=== PATIENT | female | born 1965 | race Two or more races ===

== ENCOUNTER 2017-09-02 05:07 | Inpatient (IN) | payer OTHER ==
[~2017-09-02] VITALS: Ht 160 cm; Wt 82.6 kg
[~2017-09-02 05:07] MED LIST: ACETAMINOPHEN 325 MG TABLET ONE; CEFAZOLIN SODIUM/DEXTROSE,ISO 50 ML IV ONE; CELECOXIB 100 MG CAPSULE ONE; oxyCODONE HCL SR 10MG TAB.SR.12H PO ONE
[2017-09-02] MEDS ORDERED: TRANEXAMIC ACID 3,000 MG in SODIUM CHLORIDE IRRIG SOLUTION 70 ML IR ONE (07:30)
[2017-09-02] MEDS ORDERED: BACITRACIN 50000 UNITS/VIAL ONE (09:15)
[2017-09-02] MEDS ORDERED: KETOROLAC TROMETHAMINE INJ 30 MG/ML VIAL ONE (09:15)
[2017-09-02] MEDS ORDERED: BUPIVACAINE 0.25% 75 MG/30 ML VIAL ONE (09:15)
[2017-09-02] MEDS ORDERED: MORPHINE SULFATE/PF 10 MG/10ML (1MG/ML) AMPUL ONE (09:31)
[2017-09-02] MEDS ORDERED: MIDAZOLAM HCL 2 MG/2ML VIAL ONE (09:31)
[2017-09-02] MEDS ORDERED: ONDANSETRON HCL/PF 4 MG/2 ML VIAL ONE (11:22)
[2017-09-02] MEDS ORDERED: METOCLOPRAMIDE HCL 10 MG/2 ML VIAL ONE (11:38)
[2017-09-02] MEDS ORDERED: DEXAMETHASONE SOD PHOSPHATE 4 MG/ML VIAL ONE (12:49)
[2017-09-02 13:50] VITALS: BP 109/53
[2017-09-02 14:00] VITALS: BP 109/53
--- NOTE | 2017-09-02 14:00 | NUR ---
PROCESS OWNERSUPERVISOR RICE MILLING 52 YEARS OLD FEMALE, PORTUGUESE SPEAKING ONLY. DAUGHTER AT THE BEDSIDE ASSIST ASSOCIATE PROFESSOR OF CHEMISTRY FOR THE PATIENT. PATIENT IS A/O X3, S/P RIGHT MEDIAL UNICOMPARTMENT ARTHROPLASTY TODAY BY DR. MOYER. RIGHT LOWER EXTREMITY DRESSING INTACT, ABLE TO MOVE LEFT FOOT AND TOES, DENIES PAIN. SCD IN PLACE. ZURITA INTACT, DRAINING TO GRAVITY, BAG OFF THE FLOOR. URINE CLEAR AND YELLOW. LEADS APPLIED FOR TELE MONITOR. WILL CONT TO MONITOR. DR. OSMAN FOR CONSULT PAIN MANAGEMENT.
[2017-09-02] MEDS ORDERED: BISACODYL SUPP (10 MG) 10 MG/SUPP.RECT SUPP.RECT RC PRN (14:30)
[2017-09-02] MEDS ORDERED: ZOLPIDEM TARTRATE 5 MG TABLET PO PRN (14:30)
[2017-09-02] MEDS ORDERED: MENTHOL/CETYLPYRD (CEPACOL) 1 LOZ LOZENGE MM PRN (14:30)
[2017-09-02] MEDS ORDERED: ACETAMINOPHEN 325 MG TABLET PO PRN (14:30)
[2017-09-02] MEDS ORDERED: DOCUSATE SODIUM 250 MG CAPSULE PO PRN (14:30)
[2017-09-02] MEDS ORDERED: SENNOSIDES 8.6 MG TABLET PO PRN (14:30)
[2017-09-02] MEDS ORDERED: CLONIDINE HCL 0.1 MG TABLET PO PRN ×2 (14:30→17:30)
[2017-09-02] MEDS ORDERED: diphenhydrAMINE HCL 25 MG CAPSULE PO PRN ×2 (14:30→17:30)
[2017-09-02] MEDS ORDERED: ONDANSETRON HCL/PF 4 MG/2 ML VIAL IVP PRN (14:30)
[2017-09-02] MEDS: IV D5/0.45 NACL 1,000 ML IV PRN ×2 (14:53→22:22)
[2017-09-02] MEDS ORDERED: NALOXONE HCL 0.4 MG/ML AMPUL IV PRN (15:00)
[2017-09-02] MEDS ORDERED: MORPHINE SULFATE INJ 4 MG/ML DISP.SYRIN IM PRN (15:00)
[2017-09-02] MEDS ORDERED: MAGNESIUM HYDROXIDE 30 ML UDC PO PRN (15:00)
[2017-09-02] MEDS ORDERED: MAG HYDROX/AL HYDROX/SIMETH 30 ML UDC PO PRN (15:00)
[2017-09-02 16:00] VITALS: BP_SYST 100; BP_SYST 109; BP_DIAS 53; BP_DIAS 54
[2017-09-02] MEDS: ANCEF 1 GM/50 ML D5W IV SCH ×2 (16:36)
[2017-09-02] MEDS: DOCUSATE SODIUM 100 MG CAPSULE PO SCH (16:36)
--- NOTE | 2017-09-02 18:16 | NUR ---
PRICING STRATEGIST CLOSING NOTES PATIENT IN BED, A/O X4. PT EVAL TODAY, RIGHT KNEE CPM MACHINE IN PLACE, TOLERATING WELL. SINUS RHYTHM HR 69 IN THE MONITOR. IVF D5 1/2 NS INFUSING AT 125ML/HR, SALINE LOCK WHEN TAKING PO PER MD. PATIENT HAS NO APPETITE TO EAT AT THIS TIME, OFFERED PO FLUIDS. DENIES PAIN, VS REMAINS STABLE, AFEBRILE. DR. OSMAN FOR PAIN MANAGEMENT CONSULT. WILL ENDORSE TO ONCOMING RN.
--- NOTE | 2017-09-02 19:20 | NUR ---
MS/RN OPENING NOTES PT RECEIVED RESTING IN BED, ON 2L O2 VIA NC, BREATHING EVEN AND UNLABORED. DENIES SOB. ON TELE OBSERVATION D/T SPINAL ANESTHESIA, SR WITH HR 61. IV TO RIGHT HAND PATENT AND INTACT RUNNING IVF ORDERED. DENIES PAIN AT THIS TIME. CPM MACHINE TO RIGHT LEG IN PLACE, DRESSING WITH CALVIN BANDAGE C/D/I. BED IN LOW/LOCKED POSITION WITH CALL LIGHT IN REACH. SIDE RAILS UPX2. WILL CONTINUE TO MONITOR
[2017-09-02 20:00] VITALS: BP 103/60
[2017-09-02] MEDS: PANTOPRAZOLE 40 MG TABLET.DR PO SCH (22:07)
--- NOTE | 2017-09-02 23:00 | NUR ---
MS/RN NOTES CPM MACHINE OFF. PT NO LONGER WANTS TO USE IT. CPM MACHINE REMOVED FROM BED. RIGHT LEG STABILIZED AND ELEVATED ON PILLOW. WILL CONTINUE TO MONITOR
[2017-09-03] VITALS (9 sets, daily range): BP systolic 120–161; BP diastolic 59–82
--- NOTE | 2017-09-03 01:30 | NUR ---
MS/RN NOTES PT WITH X1 EPISODE OF EMESIS. PRN ZOFRAN ADMINISTERED ORDERED. WILL MONITOR FOR EFFECTIVENESS.
[2017-09-03] MEDS: ANCEF 1 GM/50 ML D5W IV SCH ×2 (02:13)
[2017-09-03] MEDS: oxyCODONE IR immediate release 5 MG PO PRN ×2 (02:19→12:46)
--- NOTE | 2017-09-03 02:20 | NUR ---
MS/RN NOTES PT COMPLAINING OF ACHING/THROBBING PAIN TO RIGHT KNEE. PRN OXY IR ADMINISTERED ORDERED. WILL MONITOR FOR EFFECTIVENESS
[2017-09-03 07:15] LABS: HEMOGLOBIN 12.8 g/dL (11.5-14.8)
--- NOTE | 2017-09-03 07:40 | NUR ---
MS/RN CLOSING NOTES PT ASLEEP EASILY AROUSABLE, ON 2L O2 VIA NC, BREATHING EVEN AND UNLABORED. DENIES SOB. ON TELE MONITOR SR WITH HR 94. IV TO RIGHT HAND PATENT AND INTACT RUNNING IVF ORDERED. PAIN MEDICATION PROVIDED PRN FOR PAIN. RIGHT LEG DRESSING WITH CALVIN BANDAGE C/D/I. KEPT PT COMFORTABLY DURING SHIFT. ALL NEEDS MET. BED IN LOW/LOCKED POSITION WITH CALL LIGHT IN REACH. SIDE RAILS UPX2. ENDORSED TO DAY SHIFT RN BALAJI.
[2017-09-03] MEDS: HYDROCODONE/APAP 10/325MG 1 EA TABLET PO PRN ×2 (08:26→19:16)
[2017-09-03] MEDS: DOCUSATE SODIUM 100 MG CAPSULE PO SCH ×2 (08:26→16:21)
[2017-09-03] MEDS: ASPIRIN 325 MG TABLET PO SCH ×2 (08:26→16:21)
--- NOTE | 2017-09-03 08:38 | NUR ---
STAMP PAD FINISHER NOTES PATIENT IN BED, AWAKE, A/O X4. SINUS RHYTHM HR 82 ON THE MONITOR. RIGHT KNEE DRESSING INTACT, SCD IN PLACE. PRE MEDICATE PATIENT WITH NORCO 10/325MG 1 TAB PO PRN PRIOR PT. MAINTAIN FALL PRECAUTION. WILL CONT TO MONITOR.
[2017-09-03] MEDS: IV D5/0.45 NACL 1,000 ML IV PRN (09:05)
--- NOTE | 2017-09-03 14:57 | NUR ---
REMOVED LEADS, CHARGE NURSE IS AWARE. PATIENT COMPLETED TELE MONITORING DUE SPINAL ANESTHESIA POST OP RIGHT KNEE ARTHROPLASTY 09/02/17. PATIENT IS NOW IN [facility].
--- NOTE | 2017-09-03 16:23 | NUR ---
Per case management, pt. needed Disability Insurance Benefits form. DANIEL met with pt. at bedside and provided pt. with the form. Patient is Azerbaijani speaking only. Family of the second bed next to the pt.'s bed asked DANIEL to complete the form for pt. DANIEL told pt.'s family from bed 2 that she would not be able to fill out the form for the pt. in bed one.
--- NOTE | 2017-09-03 19:02 | NUR ---
ms/rn opening notes received endorsement from am rn for freeman, patietn in bed, alert, oriented x3, brazilian speaking reported pain as needed pain medication to be administered, call lights within reach, bed in lock position, will continue monitor and provide care.
--- NOTE | 2017-09-03 19:17 | NUR ---
MS/RN NOTED PAIN REPORTED SEVERE, GRIMACE,GUARDING AND ADMINISTER NORCO 10-325 MG PO WILL MONITOR PAIN RELIEF.
--- NOTE | 2017-09-03 19:29 | NUR ---
CLOSING RN NOTES A/O X4, MACEDONIAN SPEAKING ONLY. AMBULATE WITH PT TODAY, 100 FEET X2 PER PT, TOLERATING WELL. ZURITA CATH REMOVED AT 1800, OBTAINED 900ML URINE CLEAR AND YELLOW. WILL MONITOR FOR URINARY RETENTION. IVF NOT INFUSING, PATIENT TAKING PO, GOOD APPETITE. INSTRUCTION TO SALINE LOCK WHEN TAKING PO. MAINTAIN FALL PRECAUTION. ENDORSED TO NIGHT RN.
[2017-09-03] MEDS: PANTOPRAZOLE 40 MG TABLET.DR PO SCH (22:37)
[2017-09-04] MEDS: HYDROCODONE/APAP 10/325MG 1 EA TABLET PO PRN ×3 (06:21→20:14)
--- NOTE | 2017-09-04 06:24 | NUR ---
MS/RN NOTES PATIENT REPORTED PAIN AND REPORTED NORCO 10-325 MG EFFECTIVE TO RELIEVE HER PAIN.
--- NOTE | 2017-09-04 06:30 | NUR ---
315-1 MS/RN NOTES PATIENT ABLE TO SLEEP DURING THE NIGHT, ON PAIN MEDICATION MONITORING, RESPIRATIONS EVEN AND UNLABORES, NO PAIN DURING THE NIGHT ONLY ONE TIME NORCO GIVEN THE START OF SHIFT, ABLE TO URINATE IN BED BURGESS, WILL MONITOR AND ENDORSE TO AM RN FOR BALAJI.
--- NOTE | 2017-09-04 07:20 | NUR ---
RN OPEN NOTES RECEIVED REPORT FROM HAND FILER BALANCE WHEEL NURSE. PATIENT IS IN BED, ALERT AND ORIENTED TO NAME, PLACE AND TIME. SLOV[place] SPEAKER. BED IN LOW POSITION, LOCKED AND TWO SIDE RAILS ARE UP. CALL LIGHT WITH IN REACH FOR SAFETY. NO SIGNS AND SYMPTOMS OF DISTRESS. WILL CONTINUE TO ASSESS AND MONITOR PATIENT
[2017-09-04 08:00] VITALS: BP 158/85
[2017-09-04] MEDS: DOCUSATE SODIUM 100 MG CAPSULE PO SCH ×2 (08:31→16:53)
[2017-09-04] MEDS: ASPIRIN 325 MG TABLET PO SCH ×2 (08:31→16:53)
[2017-09-04 15:56] LABS: CALCIUM, SERUM 9.1 mg/dL (8.5-10.1); CREATININE 0.8 mg/dL (0.6-1.3); POTASSIUM 3.3 mmol/L (3.5-5.1)
[2017-09-04 16:00] VITALS: BP 130/60
[2017-09-04] MEDS ORDERED: POTASSIUM CHLORIDE 20 MEQ TAB.PRT.SR PO SCH (17:30)
--- NOTE | 2017-09-04 18:25 | NUR ---
RN CLOSING NOTES PATIENT IS IN BED, ALERT AND ORIENTED TO NAME, PLACE AND TIME. GREENLANDIC SPEAKING. NO SIGNS AND SYMPTOMS OF DISTRESS. DISCHARGE PLANING IN AM. ALL NURSING CARE ANTICIPATED AND ATTENDED FOR. BED IN LOW POSITION, LOCKED AND TWO SIDE RAILS ARE UP FOR SAFETY. CALL LIGHT WITHIN REACH. NO CHANGES DURING THE SHIFT. WILL ENDORSE TO COOKIE PADDER NURSE.
--- NOTE | 2017-09-04 19:30 | NUR ---
RN NOTES RECEIVED PT AWAKE ON BED, A/OX4, SLOV[place] SPEAKING, H/L, PT IS TAKING PO WELL, AMBULATE WITH WALKER AND NEED ASSISTANCE, DRESSING ON THE RIGHT KNEE DRY AND INTACT, CALL LIGHT WITHIN REACH, [id number], CONTINUE TO MONITOR
[2017-09-04 20:00] VITALS: BP 151/81
--- NOTE | 2017-09-04 20:20 | NUR ---
RN NOTES COMPLAINED OF RIGHT KNEE PAIN- NORCO 10/325 MG PO GIVEN ORDERED, V/S STABLE
[2017-09-04] MEDS: PANTOPRAZOLE 40 MG TABLET.DR PO SCH (21:52)
[2017-09-05] MEDS: HYDROCODONE/APAP 10/325MG 1 EA TABLET PO PRN ×2 (06:39→14:16)
--- NOTE | 2017-09-05 06:40 | NUR ---
RN NOTES COMPLAINED OF RIGHT KNEE PAIN- NORCO 10/325MG PO GIVEN ORDERED, MORNING CARE RENDERED, CALL LIGHT WITHIN REACH, [id number], PT NEEDS ATTENDED
[2017-09-05 07:19] LABS: CALCIUM, SERUM 8.8 mg/dL (8.5-10.1); CREATININE 0.6 mg/dL (0.6-1.3); POTASSIUM 3.8 mmol/L (3.5-5.1)
--- NOTE | 2017-09-05 07:40 | NUR ---
MS/RN OPENING NOTE PATIENT IN BED IN STABLE CONDITION. A/O X 4, LAO SPEAKING. NO SIGNS OF ACUTE DISTRESS. NO COMPLAIN OF PAIN OR DISCOMFORT. ALL NEEDS ATTENDED TO. CALL LIGHT WITHIN REACH. WILL CONTINUE TO MONITOR TO ENSURE SAFETY.
[2017-09-05 08:00] VITALS: BP 129/76
[2017-09-05] MEDS: ASPIRIN 325 MG TABLET PO SCH (08:11)
[2017-09-05] MEDS: DOCUSATE SODIUM 100 MG CAPSULE PO SCH (08:11)
[2017-09-05] MEDS ORDERED: DOCU-141 PO (10:49)
[2017-09-05] MEDS ORDERED: ASPI-992 PO (10:49)
--- NOTE | 2017-09-05 14:45 | NUR ---
MS/BLOW DOWN HELPER PATIENT DISCHARGE HOME WITH HOME HEALTH IN STABLE CONDITION. A/O X 4, CHINESE SPEAKING. NO SIGNS OF ACUTE DISTRESS. NO COMPLAIN OF PAIN OR DISCOMFORT. DISCHARGE INSTRUCTIONS AND TEACHINGS PROVIDED, VERBALIZED UNDERSTANDING. MADE AWARE TO FOLLOW UP WITH DR MOYER WITHIN 1-2 WEEKS. PER PATIENT SHE ALREADY HAVE APPT SCHEDULE FOR SEPTEMBER 18, 2017. NAME BAND AND IV LINE REMOVED. ALL NEEDS ATTENDED TO. WALKER PROVIDED FOR ASSISTANCE. LEFT VIA PRIVATE CAR ACCOMPANIED BY DAUGHTER IN STABLE CONDITION.
== END 2017-09-05 14:45 | disposition home health service (06) | DRG 470 ==
LOC: DS 05:07 → MED 14:02
PROVIDERS: ADMIT Specialist; ATTEND Specialist
PROC: 0SRC0L9 Replacement of Right Knee Joint with Medial Unicondylar Synthetic Substitute, Cemented, Open Approach (ICD-10-PCS; principal; 2017-09-02 09:10)
PROC: 0QQD0ZZ Repair Right Patella, Open Approach (ICD-10-PCS; principal; 2017-09-02 09:10)
DX: S83.241A Other tear of medial meniscus, current injury, right knee, initial encounter (principal); M22.41 Chondromalacia patellae, right knee; E66.9 Obesity, unspecified; Z90.710 Acquired absence of both cervix and uterus; X58.XXXA Exposure to other specified factors, initial encounter; Y93.9 Activity, unspecified; Y92.009 Unspecified place in unspecified non-institutional (private) residence as the place of occurrence of the external cause; Z68.32 Body mass index [BMI] 32.0-32.9, adult; S83.281A Other tear of lateral meniscus, current injury, right knee, initial encounter
CPT/HCPCS: 36415; 80048-TC; 85027-TC; 86850-TC; 86921-TC; 87081-TC; 88305-TC; 88311-TC; 97110-TC; 97116-TC; 97530-TC; 97760-TC; A4217; J0690; J1100; J1885; J2250; J2270; J2274; J2405; J2765; J3490; J7050; J7060